=== PATIENT | female | born 1995 | race Caucasian/White ===

== ENCOUNTER 2021-03-17 09:35 | Day surgery (SDC) | payer OTHER ==
[~2021-03-17] VITALS: Ht 154.9 cm; Wt 107.2 kg
[~2021-03-17 09:35] MED LIST: ABIL1INJ2 IM; ADDE30CA3 PO; LR 1,000 ML IV SCH; PHENYLEPHRINE 2.5% OPHTH SOL 2ML OS ONE; XANA1TAB2 PO
[2021-03-17] MEDS ORDERED: MAXITROL OPHTH OINT 3.5 GM As Ordered ONE (10:56)
[2021-03-17] MEDS ORDERED: POVIDONE-IODINE 5% OPHTH PREP SOL 30ML As Ordered ONE (10:56)
[2021-03-17] MEDS ORDERED: LIDOCAINE 2% 100MG/5ML SDV (FOR ANES.) As Ordered ONE (11:07)
[2021-03-17] MEDS ORDERED: dexameTHASONE 4 MG/ML 1ML VIAL (J1100 PER 1MG) As Ordered ONE (11:07)
[2021-03-17] MEDS ORDERED: propofoL 200 MG/20 ML VIAL As Ordered ONE (11:07)
[2021-03-17] MEDS ORDERED: fentaNYL 100 MCG/2 ML INJECTION (J3010) As Ordered ONE (11:07)
[2021-03-17] MEDS ORDERED: ONDANSETRON 4MG/2ML VIAL As Ordered ONE (11:07)
[2021-03-17] MEDS ORDERED: ROCURONIUM BROMIDE 50 MG/5 ML VIAL As Ordered ONE (11:07)
[2021-03-17] MEDS ORDERED: MIDAZOLAM INJ 2MG/2ML VIAL (J2250 PER 1MG) As Ordered ONE (11:07)
[2021-03-17] MEDS ORDERED: HYDROmorphone HCL 2MG/ML 1ML VIAL As Ordered ONE (11:08)
[2021-03-17] MEDS ORDERED: SUGAMMADEX SODIUM 500 MG/5 ML VIAL (BRIDION) As Ordered ONE (11:38)
[2021-03-17] MEDS ORDERED: ACETAMINOPHEN 1000MG 100ML IV BTL (OFIRMEV) (J0131 PER 10MG) As Ordered ONE (11:39)
[2021-03-17] MEDS ORDERED: LR 1,000 ML IV SCH (13:00)
[2021-03-17] MEDS ORDERED: ONDANSETRON 4MG/2ML VIAL IV PRN (13:00)
[2021-03-17] MEDS ORDERED: oxyCODONE 5MG TAB PO PRN (13:00)
[2021-03-17] MEDS: fentaNYL 100 MCG/2 ML INJECTION (J3010) IV PRN ×3 (13:14→13:31)
[2021-03-17 14:25] VITALS: BP 125/71
== END 2021-03-17 14:50 | disposition home or self-care (01) ==
LOC: M SDC 09:35
PROVIDERS: ATTEND Ophthalmology
DX: H50.10 Unspecified exotropia (principal); K21.9 Gastro-esophageal reflux disease without esophagitis; R19.7 Diarrhea, unspecified; F41.9 Anxiety disorder, unspecified; F31.9 Bipolar disorder, unspecified; R06.83 Snoring; Z79.899 Other long term (current) drug therapy
CPT/HCPCS: 67311; 81025; J0131; J1100; J1170; J2250; J2405; J3010